=== PATIENT | male | born 1975 | race Caucasian/White ===

== ENCOUNTER → 2023-10-01 06:29 | Day surgery (SDC) | payer BC, SELFPAY | LOC: GI 06:29 | PROVIDERS: ATTENDING PHYSICIAN Internal Medicine Gastroenterology | DX: Z12.11 Encounter for screening for malignant neoplasm of colon (principal); K62.1 Rectal polyp; K64.8 Other hemorrhoids; K62.89 Other specified diseases of anus and rectum; K22.70 Barrett's esophagus without dysplasia; K29.50 Unspecified chronic gastritis without bleeding; K22.89 Other specified disease of esophagus; K44.9 Diaphragmatic hernia without obstruction or gangrene; K21.9 Gastro-esophageal reflux disease without esophagitis; Z98.84 Bariatric surgery status | CPT/HCPCS: 45385; 43239; 88305; 88342 ==

== ENCOUNTER 2024-09-06 23:53 | Emergency (ER) | payer BC, SELFPAY ==
[2024-09-07 00:01] VITALS: BP 163/93
[2024-09-07 00:29] LABS: COVID-19 Antigen Negative (Negative)
--- NOTE | 2024-09-07 01:38 | ED.GENMED ---
History of Present Illness
General
Chief Complaint: Cold/Flu/URI Symptoms
Source: patient
Exam Limitations: none
Time Seen by Provider: 09/07/24 01:16
Nursing documentation reviewed up to this point in time: agreed with
History of Present Illness
History of Present Illness:
Pleasant 48-year-old male presents the emergency department with cough that has been present for the last 3 weeks. He was originally tested for flu and COVID which were negative. He just got back from a [employer] cruise. During his cruise his
symptoms were persistent. He was at urgent care and given an Medrol Dosepak and an inhaler with minimal relief. He is a former smoker. 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 Denies fever or chills but tonight had a feeling of warmth. He does have GERD
and Argueta's esophagus and takes omeprazole. He has been compliant with his medications.
Past History
Past History
ED Past Medical History: None
ED Past Surgical History: Cholecystectomy, Orthopedic (left meniscus repair) and Other (bariatric surgery,)
Social History
Tobacco: Smoker
Alcohol: Occasional
Personal:
Living: with family
Employment: Employed ([employer] research anthropologist)
Family History
Family History: Diabetes and CAD
Review of Systems
Review of Systems
Allergies reviewed?: Yes
Other source history: family
All Other Systems: ROS reviewed and negative except as documented in HPI and ROS
Constitutional: Reports no symptoms
EENT: Reports no symptoms
Respiratory: Reports cough and trouble breathing
Cardiac: Reports no symptoms
ABD/GI: Reports no symptoms
: Reports no symptoms
Musculoskeletal: Reports no symptoms
Skin: Reports no symptoms
Neurological: Reports no symptoms
Endocrine: Reports no symptoms
Hematologic/Lymphatic: Reports no symptoms
Psychiatric: Reports no symptoms
Phy Exam
General Physical Exam
General Presentation: well appearing and no apparent distress
General Skin: warm and dry
General Habitus: normal
General Mental: alert
General Hydration: appears well hydrated
ENT Exam
ENT Exam: EOMI, pharynx normal, neck supple and normocephalic
Eye Exam
Eye Exam: PERRL, cornea clear and conjunctiva normal
Cardiovascular Exam
Cardiovascular Exam: regular rate/rhythm, no edema, no murmur and normal peripheral pulses
Pulmonary Exam
Pulmonary Exam: lungs clear, no respiratory distress, no rales, no crackles, no rhonchi, no stridor and generalized wheezing
Cough: non productive cough
Breath Sounds: Wheeze: generalized
Gastrointestinal Exam
Gastrointestinal Exam: normal bowel sounds, non tender, soft, no organomegaly, no pulsatile mass and non distended
Neurological Exam
Neurological Exam: alert, oriented x3, no motor deficits and speech normal
Musculoskeletal Exam
Musculoskeletal Exam: full ROM and no edema
Skin Exam
Skin Exam: normal color, warm/dry, no rash and no petechia
Psychiatric Exam
Psychiatric Exam: normal mood/affect
Course
Orders/Labs/Results
Orders:
Orders
09/06/24 23:57
COVID-19 Antigen Urgent
Source: Nasal Swab
Influenza A+B Rapid Molecular Urgent
[facility]OU[facility] Source: Nasal Swab
Specimen Description:
CR Chest - 2 Views Urgent
Comment:
Reason For Exam: cough for 3 weeks
09/07/24 01:37
Azithromycin [Zithromax] 500 mg PO NOW STA
Dexamethasone Pf [Decadron] 10 mg PO NOW STA
Vital Signs
Initial and Last Documented VS:
Initial Vital Signs
Temp Pulse Resp BP Pulse Ox
99.1 F 86 20 163/93 97
09/07/24 00:01 09/07/24 00:01 09/07/24 00:01 09/07/24 00:01 09/07/24 00:01
Last Documented Vital Signs
Temp Pulse Resp BP Pulse Ox
99.1 F 86 20 163/93 97
09/07/24 00:01 09/07/24 00:01 09/07/24 00:01 09/07/24 00:01 09/07/24 00:01
MDM/Problems Addressed
Differential Diagnosis Includes:
Bronchitis, pneumonia, COPD
MDM/Problems Addressed:
48-year-old male history of tobacco abuse diagnosed with bronchitis it is not improving after 3 weeks.
Chronic conditions affecting care:
Former longtime smoker
*Radiology
Radiology exam reviewed: preliminary read by ED provider (Possible right lower lobe pneumonia)
*Pulse Oximetry
Patient hypoxic: no
*Critical Care Note
Total Time (30-74mins, 75-104mins- exclusive of procedures): Not Applicable
ED Attending Note
-
Portions of this chart may have been created with voice recognition software.� Occasional wrong word or��sound alike� substitutions may have occurred due to the inherent limitations of voice recognition software.
Discharge Plan
Departure
Patient Disposition: Home (Routine Discharge)
Date of Disposition: 09/07/24
Time of Disposition: 01:40
Patient with high blood pressure during this ER visit?: Yes
Condition: Good
Discharge Problem:
Pneumonia, Cough
Instructions: Pneumonia in adults - Discharge instructions, BLOOD PRESSURE
Prescriptions:
New
azithromycin [Zithromax] 250 mg tablet
250 mg PO DAILY Qty: 4 0RF
No Action
omeprazole 20 MG capsule,delayed release(DR/EC)
20 mg PO DAILY Qty: 21 0RF
docusate sodium 100 mg Capsule
100 mg PO BID Qty: 30 0RF
sennosides [Senna Laxative] 8.6 mg Tablet
17.2 mg PO BID Qty: 30 0RF
Saccharomyces boulardii [Florastor] 250 mg capsule
250 mg PO BID Qty: 10 0RF
Rx Instructions:
Over the counter. Take while on antibiotic.
If unavailable, choose a different probiotic.
pregabalin [Lyrica] 75 mg capsule
75 mg PO BID Qty: 15 0RF
Rx Instructions:
Take twice a day for 5 days, then once daily for 5 days, then STOP.
Activity Restrictions/Additional Instructions:
It was a pleasure meeting you and taking part in your care. We hope for your continued healing and wellness.
Please read discharge instructions in their entirety. However, they are for general education and may not describe your exact diagnosis at discharge. Information on your ER visit and medical conditions were discussed with you along with appropriate
follow up information...
If indicated, please take your medications as instructed and indicated on discharge paperwork.
Please schedule a follow up appointment as directed. Call to schedule an appointment
Please return to the emergency department with ANY change in, persisting, or worsening of symptoms. If any of your symptoms do not improve, or persist, or become more severe within 6-12 hours, please return to the emergency department for further
care.
Please return to the emergency department if you develop a headache, neck pain/stiffness, fever greater than 100.4F, chest pain, shortness of breath, persistent nausea, vomiting, slurred speech, difficulty walking, numbness/tingling, weakness, signs
of infection or any other symptoms that are worrisome to you.
If you have any questions or concerns please do not hesitate to call the Hospital at or E-mail me directly at [email or web address]
Interventions
Interventions:
*Risk Screen - Suicide Last Done: 09/06/24 23:54
*Neglect/Abuse Screening Last Done: 09/06/24 23:54
*ED COVID-19 Vaccine History Last Done: 09/06/24 23:54
Discharge Date and Time
Print Language: THAI
[2024-09-07] MEDS: ZITHROMAX 500 MG PO (01:51)
[2024-09-07] MEDS: DECADRON 10 MG PO (01:52)
[2024-09-07 01:54] VITALS: BP 148/91
== END 2024-09-07 01:59 | disposition home or self-care (01) ==
LOC: EMR 23:53
PROVIDERS: Emergency Medicine; EMERGENCY PHYSICIAN Student in an Organized Health Care Education/Training Program; FAMILY PHYSICIAN Internal Medicine
DX: J18.9 Pneumonia, unspecified organism (principal); R05.9 Cough, unspecified; K21.9 Gastro-esophageal reflux disease without esophagitis; K22.70 Barrett's esophagus without dysplasia; Z82.49 Family history of ischemic heart disease and other diseases of the circulatory system; Z83.3 Family history of diabetes mellitus; Z90.49 Acquired absence of other specified parts of digestive tract
CPT/HCPCS: 99283; 71046; 87502; 87811